=== PATIENT | male | born 1935 | race Caucasian/White ===

== ENCOUNTER 2016-11-19 21:21 | Emergency (ER) | payer OTHER, MEDICARE ==
[~2016-11-19] VITALS: Ht 167.6 cm; Wt 88.4 kg
[~2016-11-19 21:21] MED LIST: ALPR-236 PO; ASPI-1116 PO; BUDE10.2 PO; CHOL20002 PO; CITA-50 PO; DILT180C52 PO; GABA300C PO; GLUC1CAP25 PO; HYDR-2164 PO; LATA2.5D7 BOTH EYES; LOSA50TA2 PO; METH500T6; MULT-806 PO; OMEG500C7 PO; OMEP-29 PO; POLY10DR3 OP; SIMV20TA89 PO; TAMS0.4C20 PO; TIZA4CAP6 PO; WARF2.5T41 PO; [UNRECOGNIZED DRUG - CODE] PO; [UNRECOGNIZED DRUG - CODE] PO
--- OUTSIDE RECORDS SUMMARY | 2016-11-19 21:25 | XMS REPORT ---
Author Author GENERATED, SYSTEM Organization Unknown Address Unknown Phone Unavailable Care Team Providers Care Income Tax Investigator Name Role Phone MD VERITO, AUGUSTUS [phone] Reason For Visit Chief Complaint G48.33 Social History Functional Status Vital Signs Results Problems Encounter Diagnosis No relevant problems exist. Encounters Encounter Diagnosis No relevant problems exist. Plan of Care Procedures No relevant procedures performed. Immunizations No immunizations administered or ordered. Hospital Course Hospital Discharge Instructions Allergies, Adverse Reactions, Alerts * Latex Allergy has not been assessed. * IV Contrast Allergy has not been assessed. Medication Medication reconciliation has not been performed.
--- OUTSIDE RECORDS SUMMARY | 2016-11-19 21:25 | XMS REPORT | Continuity of Care Document ---
Author Author [facility] Organization [facility] Address Unknown Phone Unavailable Allergies Active Description Code Type Severity Reaction Onset Reported/Identified Relationship to Patient Clinical Status Yes NKDA N/A N/A Yes No Known Medication Allergies NKMA N/A N/A 04/21/2014 Medications Problems Procedures Results Encounters ACCT No. Visit Date/Time Discharge Status Pt. Type Provider Facility Loc./Unit Complaint [id number] 11/17/2013 10:50:00 11/17/2013 23 :59:59 CLS Outpatient [id number] 08/02/2013 11:27:00 08/02/2013 23 :59:59 CLS Outpatient
--- OUTSIDE RECORDS SUMMARY | 2016-11-19 21:26 | XMS REPORT ---
Author Author GENERATED, SYSTEM Organization Unknown Address Unknown Phone Unavailable Care Team Providers Care Registered Nurse Step Down Name Role Phone MD VERITO, AUGUSTUS [phone] Reason For Visit Chief Complaint G47.31,G47.33 Social History Functional Status Vital Signs Results [...]
--- OUTSIDE RECORDS SUMMARY | 2016-11-19 21:26 | XMS REPORT | Continuity of Care Document ---
Author Author [facility] Organization [facility] Address Unknown Phone Unavailable Care Team Providers Care Cable Installation Manager Name Role Phone AUGUSTUS SELLERS DO Primary Care Physician [phone] Insurance Providers Guarantor Barry Perez Address [address] [phone] Email [email or web address] Payer [place] Policy Number [id number] Subscriber's Name Barry Perez Relationship 18 Self Group Number [id number] Effective Date 99 Payer Medicare Policy Number [id number] Subscriber's Name Barry Perez Relationship 18 Self Effective Date 99 Chief Complaint and Reason for Visit Chief Complaint Eye Problems Reason for Visit Conjunctivitis Problems Active Problems Medical Problem Onset Date Status Dizziness Unknown Acute Encounter for removal of keisha Unknown Acute Hypotension Unknown Acute Past Problems Medical Problem Onset Date Conjunctivitis Unknown Laceration of head Unknown Skin tear of right upper arm without complication Unknown Medications Current Home Medications Medication Dose Units Route Directions Days Qty Instructions Start Date Alprazolam 0.5 Mg Tablet 0.5 Mg Oral As Needed 10/28/12 Aspirin (Ecotrin) 81 Mg Tablet. 1 Tab Oral Daily DO NOT CHEW, CRUSH OR BREAK THE TABLET 05/10/16 Budesonide/Formoterol Fumarate (Symbicort 160-4.5 Mcg Inhaler) 10.2 Gm Hfa.aer.ad 2 Puff Oral Twice A Day 1 SHAKE WELL BEFORE USING. RINSE MOUTH AFTER EACH. 05/10/16 Calcitriol 0.25 Mcg Capsule 0.25 Mcg Oral Daily 10/28/12 Cholecalciferol (Vitamin D3) (Vitamin D) 2,000 Unit Capsule 2,000 Unit Oral Daily 10/28/12 Citalopram Hydrobromide (Celexa) 20 Mg Tablet 10 Mg Oral Daily Diltiazem Hcl (Cartia Xt) 180 Mg Cap.sr.24h 180 Mg Oral Daily Gabapentin (Neurontin) 300 Mg Capsule 1 Tab Oral Twice A Day 06/15 Glucosa Watson 2KCL/Chondroitin Watson (Glucosamine & Chondroitin Cap) 1 Cap Capsule 2 Cap Oral Daily 10/28/12 Hydrochlorothiazide 25 Mg Tablet 25 Mg Oral Daily 12/10/12 Hydrocodone Bit/Acetaminophen ([place] 10-325 Tablet) 1 Tab Tablet 1 Tab Oral As Needed 12/10/12 Latanoprost 2.5 Ml Drops 1 Drop Both Eyes Bedtime 10/08/16 Losartan Potassium (Cozaar) 50 Mg Tablet 50 Mg Oral Daily Methocarbamol 500 Mg Tablet 05/10/16 Multivitamins (Multivitamin) 1 Tab Tablet 1 Tab Oral Daily [place]-3 Fatty Acids (Fish Oil) 500 Mg Capsule 500 Mg Oral Daily 10/28/12 Omeprazole (Prilosec) 20 Mg Capsule.dr 20 Mg Oral Daily 10/28/12 Polymyxin B Sulf/Trimethoprim (Polymyxin B-Tmp Eye Drops) 10 Ml Drops 1 Drop Ophthalmic Three Times A Day 7 Days 10 Milliliter apply one drop to the left eye three times a day for [address] Edmundo Moe Pbx Technician [facility] [address] [place] [address] Simvastatin 20 Mg Tablet 20 Mg Oral Daily 10/28/12 Tamsulosin Hcl (Flomax) 0.4 Mg Cap.sr.24h 0.4 Mg Oral Daily 10/28 Tizanidine Hcl 4 Mg Capsule 4 Mg Oral As Needed 10/28/12 Warfarin Sodium (Coumadin) 2.5 Mg Tablet 2 Mg Oral Daily 10/28/12 Past Home Medications Medication Directions Ordered Status Hydrocodone Bit/Acetaminophen (Lortab 7.5-500 Tablet) 1 Tab Tablet, 1 Tab Oral As Needed 10/28/12 Discontinued Social History No social history. Hospital Discharge Instructions No hospital discharge instructions. Plan of Care Discharge Date 10/08/16 2:25pm Disposition 01 DISCHARGED HOME, SELF-CARE Condition at Discharge Stable Instructions/Education Provided Conjunctivitis (ED) Prescriptions See Medication Section Referrals AUGUSTUS SELLERS DO Address: [address] [place] [phone] Functional Status No functional status results. Allergies, Adverse Reactions, Alerts No known allergies. Immunizations Query Response on File Recorded Date/Time Hx Tetanus, Diptheria, Pertussis Yes 05/12/15 10:50am Hx Tetanus Diptheria Yes 05/12/15 10:50am Hx Tetanus, Diptheria, Pertussis Yes 05/12/15 10:50am Influenza Vaccine Hx JUL 2016 10/08/16 1:55pm Tetanus Diptheria Vaccine History UP TO DATE 10/08/16 1:55pm Vital Signs Acute Vital Signs Vital Response Date/Time Temperature (Fahrenheit) 96.9 deg F (96.8 - 99.1) 10/08/2016 1:50pm Temperature (Calculated Celsius) 36.29059 degrees C (36.0 - 37.3) 10/08/2016 1:50pm Pulse Rate (adult) 65 bpm (60 - 100) 10/08/2016 1:50pm O2 Sat by Pulse Oximetry 99 % (90 - 100) 10/08/2016 1:50pm Blood Pressure 119/79 mm Hg 10/08/2016 1:50pm Height (Inches) 64.50 inches 10/08/2016 1:50pm Weight (Kilograms) 89.100 kg 10/08/2016 1:50pm Body Mass Index (BMI) 33.0 10/08/2016 1:50pm Results No known relevant diagnostic tests, laboratory data and/or discharge summary. Procedures No known history of procedures. Encounters Encounter Location Arrival/Admit Date Discharge/Depart Date Attending Provider Departed Emergency Room [facility] 10/08/16 1:43pm 10/08/16 2: 25pm COSTA PINEDA APRN Recent Diagnosis
[2016-11-19] MEDS ORDERED: ACETAMINOPHEN 500 MG TABLET PO ONE (21:30)
[2016-11-19] MEDS ORDERED: NORMAL SALINE 1,000 ML IV ONE (21:30)
[2016-11-19] MEDS ORDERED: ONDANSETRON 4mg/2ml INJECTION IV ONE (21:30)
--- OUTSIDE RECORDS SUMMARY | 2016-11-19 21:38 | XMS REPORT ---
Author Author GENERATED, SYSTEM Organization Unknown Address Unknown Phone Unavailable Care Team Providers Care Rehab Director Occupational Therapist Name Role Phone MD VERITO, AUGUSTUS [phone] Reason For Visit Chief Complaint G48.33 Social [...]
--- OUTSIDE RECORDS SUMMARY | 2016-11-19 21:38 | XMS REPORT | Continuity of Care Document ---
Author Author [facility] Organization [facility] Address Unknown Phone Unavailable Allergies Active Description Code Type Severity Reaction Onset Reported/Identified Relationship to Patient Clinical Status Yes NKDA N/A N/A Yes No Known Medication Allergies NKMA N/A N/A 04/21/2014 Medications Problems Procedures Results Encounters ACCT No. Visit Date/Time Discharge Status Pt. Type Provider Facility Loc./Unit Complaint [id number] 11/17/2013 10:50:00 11/17/2013 23 :59:59 CLS Outpatient [id number] 08/02/2013 11:27:00 08/02/2013 23 :59:59 CLS Outpatient
--- OUTSIDE RECORDS SUMMARY | 2016-11-19 21:39 | XMS REPORT ---
Author Author GENERATED, SYSTEM Organization Unknown Address Unknown Phone Unavailable Care Team Providers Care Mate First Name Role Phone MD VERITO, AUGUSTUS [phone] Reason For Visit Chief Complaint G47.31,G47.33 Social [...]
[2016-11-19 21:40] VITALS: TEMP 98.4; Ht 167.6 cm; Wt 88.4 kg
[2016-11-19] MEDS ORDERED: WARF2TAB6 PO (21:50)
[2016-11-19] MEDS ORDERED: WARF1TAB6 PO (21:50)
[2016-11-19] MEDS ORDERED: PANT40TA27 PO (21:51)
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
[2016-11-19 22:16] LABS: BASOPHILS # (AUTO) 0.1 T/MM3 (0-0.2); BASOPHILS % (AUTO) 0.7 % (0-2); EOSINOPHILS # (AUTO) 0.3 T/MM3 (0-0.5); EOSINOPHILS % (AUTO) 4.6 % (0-4); HCT - HEMATOCRIT 40.7 % (41-53); HGB - HEMOGLOBIN 13.8 GM/DL (13.5-17.5); IMMATURE GRANULOCYTE # (AUTO) 0.01 T/MM3 (0.00-0.03); IMMATURE GRANULOCYTE % (AUTO) 0.1 % (0.0-0.5); LYMPHOCYTES # (AUTO) 1.4 T/MM3 (1-4.8); LYMPHOCYTES % (AUTO) 20.3 % (23-45); MEAN CORPUSCULAR HGB CONC(MCHC 33.9 GM/DL (31-37); MEAN CORPUSCULAR VOLUME 88.5 UM3 (80-100); MEAN PLATELET VOLUME 11.2 UM3 (9.4-12.4); MONOCYTES # (AUTO) 0.4 T/MM3 (0-0.8); MONOCYTES % (AUTO) 6.4 % (0-9.0); NEUTROPHILS #(AUTO)-ABSOLUTE 4.6 T/MM3 (1.8-7.7); NEUTROPHILS % (AUTO) 67.9 % (33-66); WBC - WHITE BLOOD COUNT 6.8 T/MM3 (4.5-11.0)
[2016-11-19 22:23] LABS: POTASSIUM 3.7 MEQ/L (3.6-5)
[2016-11-19 22:26] LABS: ALBUMIN 4.2 G/DL (3.5-5.0); ALBUMIN/GLOBULIN RATIO 1.3 RATIO (1.1-2.2); ALKALINE PHOSPHATASE 64 U/L (38-126); ALT (SGPT) 26 U/L (21-72); ANION GAP 12 MEQ/L (5-15); AST (SGOT) 26 U/L (17-59); BUN/CREATININE RATIO 15 RATIO (6-26); CALCIUM 9.4 MG/DL (8.4-10.2); CHLORIDE 106 MEQ/L (98-107); CO2 - CARBON DIOXIDE 25 MEQ/L (22-30); GLOMERULAR FILTRATION RATE 32; GLUCOSE 130 MG/DL (75-110); SODIUM 143 MEQ/L (134-144); TOTAL PROTEIN 7.5 G/DL (6.3-8.2)
[2016-11-19 22:56] LABS: BLOOD, URINE NEGATIVE (NEGATIVE); COLOR,URINE YELLOW (YELLOW); LEUKOCYTE ESTERASE ,URINE NEGATIVE (NEGATIVE); NITRITE,URINE NEGATIVE (NEGATIVE)
[2016-11-19 23:17] VITALS: BP 116/71; PULSE 60; RESP 17; O2SAT 92
--- NOTE | 2016-11-19 23:17 | NUR ---
DEPARTURE PT COLLECTED BELONGINGS AND AMBULATED INDEPENDENTLY TO EXIT WITH SPOUSE, GAIT STEADY.
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
== END 2016-11-19 23:17 | disposition home or self-care (01) ==
LOC: ED 21:21
DX: E86.0 Dehydration (principal); R41.0 Disorientation, unspecified; R41.3 Other amnesia; I11.0 Hypertensive heart disease with heart failure; I50.9 Heart failure, unspecified
CPT/HCPCS: 80053; 81003; 84484; 85025; 93005

== ENCOUNTER → 2017-01-02 | Outpatient (CLI) | payer MEDICARE, OTHER ==
[~2017-01-02] MED LIST changes: -BUDE10.2 PO; -CHOL20002 PO; -CITA-50 PO; -GLUC1CAP25 PO; -LATA2.5D7 BOTH EYES; -OMEG500C7 PO; -OMEP-29 PO; +PANT40TA27 PO; -POLY10DR3 OP; +WARF1TAB6 PO; -WARF2.5T41 PO; +WARF2TAB6 PO; -[UNRECOGNIZED DRUG - CODE] PO
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
== END ==
LOC: IMA 13:58
PROVIDERS: ATTEND Neurological Surgery
DX: M47.812 Spondylosis without myelopathy or radiculopathy, cervical region (principal); M50.11 Cervical disc disorder with radiculopathy, high cervical region; M50.121 Cervical disc disorder at C4-C5 level with radiculopathy; M50.122 Cervical disc disorder at C5-C6 level with radiculopathy; M50.123 Cervical disc disorder at C6-C7 level with radiculopathy; Z98.890 Other specified postprocedural states; R20.9 Unspecified disturbances of skin sensation